=== PATIENT | female | born 1955 | race Caucasian/White ===

== ENCOUNTER 2016-12-08 10:13 | Emergency (ER) | payer BC, OTHER ==
[2016-12-08] MEDS ORDERED: Morphine INJ* 4 MG/ML 1 ML CARPUJECT IV ONE (10:29)
--- NOTE | 2016-12-08 10:50 | ED ---
Upper Extremity Pain - HPI Summary HPI Summary: Foosh injury right hand 30 minutes RN ORTHOPAEDIC - History of Current Complaint Chief Complaint: EDExtremityUpper Stated Complaint: FALL/RT WRIST PAIN Time Seen by Provider: 12/08/16 10:40 Hx Obtained From: Patient Mechanism Of Injury: Fall From A Standing Position Onset/Duration: Started Minutes Ago - 30, Traumatic Timing: Constant Severity Initially: Moderate Severity Currently: Moderate Pain Location: Wrist - right Character: Aching, Throbbing Aggravating Factor(s): Movement Alleviating Factor(s): Nothing Associated Signs & Symptoms: Positive: Swelling Related History: Dominant Hand Right - Allergies/Home Medications Allergies/Adverse Reactions: Allergies Allergy/AdvReac Type Severity Reaction Status Date / Time No Known Allergies Allergy Verified 12/08/16 10:21 PMH/Surg Hx/FS Hx/Imm Hx Previously Healthy: Yes - Cancer History Hx Chemotherapy: No Hx Radiation Therapy: No Infectious Disease History: No Infectious Disease History: Denies: Traveled Outside the [place] in Last 30 Days - Family History Known Family History: Positive: None - Social History 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 Lives: With Family Alcohol Use: Occasionally Hx Substance Use: No Substance Use Type: Reports: None Hx Tobacco Use: No Review of Systems Constitutional: Negative Eyes: Negative ENT: Negative Cardiovascular: Negative Respiratory: Negative Gastrointestinal: Negative Genitourinary: Negative Positive: Arthralgia - right fore arm, Decreased ROM - right wrist Skin: Negative Neurological: Negative Psychological: Normal All Other Systems Reviewed And Are Negative: Yes Physical Exam Triage Information Reviewed: Yes Vital Signs On Initial Exam: Initial Vitals Temp Pulse Resp BP Pulse Ox 97.5 F 88 19 120/86 99 12/08/16 10:20 12/08/16 10:20 12/08/16 10:20 12/08/16 10:20 12/08/16 10:20 Vital Signs Reviewed: Yes Appearance: Positive: Well-Appearing, Well-Nourished, Pain Distress Skin: Positive: Warm, Skin Color Reflects Adequate Perfusion, Dry Head/Face: Positive: Normal Head/Face Inspection Eyes: Positive: Normal, EOMI, Conjunctiva Clear ENT: Positive: Normal ENT inspection, Hearing grossly normal. Negative: Trismus , Muffled/hoarse voice Neck: Positive: Supple Respiratory/Lung Sounds: Positive: Clear to Auscultation, Breath Sounds Present Cardiovascular: Positive: Normal, RRR, Pulses are Symmetrical in both Upper and Lower Extremities Musculoskeletal: Positive: Normal - left, Limited @ - right wrist Neurological: Positive: Normal, Sensory/Motor Intact, Alert, Oriented to Person Place, Time, CN Intact II-III Psychiatric: Positive: Normal AVPU Assessment: Alert - Martha Coma Scale Best Eye Response: 4 - Spontaneous Best Motor Response: 6 - Obeys Commands Best Verbal Response: 5 - Oriented Diagnostics - Vital Signs Vital Signs Temp Pulse Resp BP Pulse Ox 12/08/16 10:20 97.5 F 88 19 120/86 99 - Laboratory Lab Statement: Any lab studies that have been ordered have been reviewed, and results considered in the medical decision making process. - Radiology No standard instances Xray Interpretation: Positive (See Comments) - ulnar styloid fracture, Comminuted radius fracture with 40 degree volar angulation Radiology Interpretation Completed By: Radiologist Re-Evaluation - Re-Evaluation First Eval Change: Improved - rings and bracelets off, pain med with some relief resting on pillow with ice applied, Dr. Fox to come to ED for reduction and splint Second Eval Change: Improved - Dr. Ford in to see patient, wrist reduced post reduction films reviewed, plan to d/c Course/Dx - Course Assessment/Plan: nsaids, hydrocodone, sling, rice follow with Dr. Almaguer in 4 days as planned - Diagnoses Provider Diagnoses: Wrist fracture, right Discharge - Discharge Plan Condition: Stable Disposition: HOME Prescriptions: Hydrocodone-Acetaminophen [Hydrocodone/Acetaminophen 5-325 mg] 1 tab PO Q4H PRN #30 tab MDD 4 PRN Reason: more sever pain Ibuprofen TAB* [Motrin TAB* 600 MG] 600 mg PO Q6H PRN #40 tab PRN Reason: pain Patient Education Materials: Wrist Fracture in Adults (ED), RICE Therapy (ED) Referrals: Austin Almaguer MD [Medical Doctor] - 4 Days
--- NOTE | 2016-12-08 10:59 | RAD ---
HISTORY: Wrist deformity, trauma COMPARISONS: None VIEWS: 6, Frontal, lateral, and oblique views of the right wrist and right forearm FINDINGS: BONE DENSITY: There is diffuse osteopenia. BONES: There is a transverse, comminuted and mildly displaced fracture of the distal radial metaphysis with approximately 40 degrees of volar angulation. There is nonspecific fracture of the styloid process of the ulna. JOINTS: There is no arthropathy. ALIGNMENT: There is no dislocation. SOFT TISSUES: Unremarkable. OTHER FINDINGS: None. IMPRESSION: 1. ANGULATED, COMMINUTED AND MILDLY DISPLACED FRACTURE OF THE DISTAL RADIAL METAPHYSIS. 2. NONSPECIFIC FRACTURE OF THE STYLOID PROCESS OF THE ULNA.
[2016-12-08] MEDS ORDERED: NS 0.9% 250 ML* 250 ML IV ONE (11:24)
[2016-12-08] MEDS ORDERED: Morphine INJ* 2 MG/ML 1 ML CARPUJECT IV ONE ×2 (11:25→13:00)
[2016-12-08] MEDS ORDERED: Morphine INJ* 4 MG/ML 1 ML CARPUJECT ONE (13:09)
[2016-12-08] MEDS ORDERED: Lidocaine 1% INJ* 10 MG/ML 30 ML SDV INJ ONE (13:18)
--- NOTE | 2016-12-08 14:22 | RAD ---
Indication: Right wrist injury 3 views of the wrist demonstrates fracture of the distal radius with overriding of the fracture fragments. Plaster cast is noted. IMPRESSION: Fracture distal radius with reduction of previously identified angulation of the distal fracture fragment.
[2016-12-08 14:50] VITALS: BP 119/74
--- NOTE | 2016-12-08 22:30 | CONS ---
ORTHOPEDIC SURGERY CONSULTATION: DATE OF CONSULT: 12/08/16 CONSULTING SERVICE: Orthopedics. REQUESTING SERVICE: Emergency Room. REASON FOR CONSULTATION: Right wrist injury. CHIEF COMPLAINT: Right wrist pain. HISTORY OF PRESENT ILLNESS: Ms. 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 She is right hand dominant. Earlier today, she tripped and fell on to her right hand and while trying to catch herself, put her right arm out in the front of her. She immediately had pain and deformity on the right wrist when she landed. She denies any head strike, LOC, or any other injuries. She has pain nowhere other than the right wrist. She has never broken a bone before and has had no problems with this wrist in the past. Upon evaluation, she does endorse some tingling in her fingers. PAST MEDICAL HISTORY: Denies. PAST SURGICAL HISTORY: Denies. ALLERGIES: No known drug allergies. 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 She does not smoke. REVIEW OF SYSTEMS: Negative for fever, recent visual changes, difficulty swallowing, chest pain, shortness of breath, abdominal pain, hematuria, easy bruising, diffuse weakness, lack of coordination, or diffuse rash. PHYSICAL EXAM: Constitutional: She is healthy and nonseptic, and in no acute distress. Cardiovascular: Pulse examination demonstrates positive radial pulses bilaterally with brisk capillary refill. There are no varicosities. Lymphatic: No lymphadenopathy. Skin: Bilateral upper and lower extremities examination reveals skin is intact. Notably, skin is intact at the fracture site. Psychiatric/Neurological: Appropriate affect. Alert and oriented to person, place, and time. There is no significant abnormality in coordination appreciated. Normoreflexive deep tendon reflexes in the affected extremity. Musculoskeletal: Bilateral lower extremities and the contralateral upper extremity show full range of motion with no evidence of instability. Tenderness to palpation and they do have 5/5 strength. There is no gross deformity. In the right upper extremity, the skin is intact throughout. She has full pain with range of motion in her shoulder and elbow. No tenderness to palpation along her humerus or in the forearm. At the distal radius, there is an obvious deformity with tenderness to palpation here as well. Skin is intact. There is some swelling, but no ecchymosis. She has good motor function with EPL, OP and the first dorsal interosseous muscles. She does have some mildly decreased sensation in the median nerve distribution. It is intact in the ulnar and radial nerve distribution. She has a palpable radial pulse and all of her fingers are warm and well perfused. DIAGNOSTIC STUDIES: Imaging: X-rays were ordered, obtained and independently interpreted and do show a distal radius fracture with displacement and volar angulation. IMPRESSION AND PLAN: Right closed distal radius fracture with displacement. The nature of the diagnosis was reviewed at length with the patient and my recommendation for a closed reduction. We did discuss at length the risks and benefits of the closed reduction. After this discussion, she elected to move forward with a closed reduction. PROCEDURE NOTE: Verbal consent was obtained after a hematoma block and closed reduction of her right distal radius fracture. 10 cc of 1% plain lidocaine was placed into the fracture site. She tolerated this well without any complications. It did improve her pain significantly. Therefore, we moved forward with the closed reduction, axial traction was pulled and reduction maneuver performed. She tolerated this very well. A dorsal volar plaster splint was applied with adequate padding and she tolerated this procedure well. Afterwards, her motor function remained intact as before in the procedure and her sensation in the median nerve distribution returned to normal. Postreduction x-rays showed interval improvement in the alignment of the fracture. PLAN: Given the volar shear nature as well as the displacement, this is likely a fracture that will warrant surgical intervention. I explained this to her and we discussed this at length. I have asked her to follow up with my colleague, Dr. Almaguer, to further discuss surgery and she will plan on seeing him early next week in the office to do this. We did discuss that should she have any increase in pain, swelling or return of any numbness in her fingers, she is to return to the emergency room immediately. All of her questions were answered and she will follow up with Dr. Almaguer. [id number]/[facility] #: [id number] [facility] H[facility]PITALN[facility]
== END 2016-12-08 14:49 | disposition home or self-care (01) ==
LOC: ED 10:13
DX: S62.101A Fracture of unspecified carpal bone, right wrist, initial encounter for closed fracture (principal); W19.XXXA Unspecified fall, initial encounter; Y93.9 Activity, unspecified
CPT/HCPCS: 96374; 96376; 99282; J2001; J2270

== ENCOUNTER 2016-12-15 13:19 | Day surgery (SDC) | payer OTHER ==
[~2016-12-15 13:19] MED LIST: Buffered Lidocaine 0.9% SYRIN* 5 ML/SYR SYRINGE INTRADERM ONE; Dexamethasone IV* 4 MG/ML 1 ML (4 MG) IV SLOW PU ONE; Famotidine IV* 10 MG/ML 2 ML (20 mg) IV ONE
[2016-12-15] MEDS ORDERED: Famotidine IV* 10 MG/ML 2 ML (20 mg) ONE (13:48)
[2016-12-15] MEDS ORDERED: Dexamethasone IV* 4 MG/ML 1 ML (4 MG) ONE (13:48)
[2016-12-15] MEDS ORDERED: Bupivacaine 0.25% SDV* 30 ML ONE (14:46)
[2016-12-15] MEDS ORDERED: Lidocaine 2% PF * 5 ML VIAL ONE (14:48)
[2016-12-15] MEDS ORDERED: Propofol* 10 MG/ML 20 ML BTL IV PUSH ONE (14:48)
[2016-12-15] MEDS ORDERED: fentaNYL* 50 MCG/ML 2 ML VIAL (100 MCG VIAL) ONE (14:48)
[2016-12-15] MEDS ORDERED: Midazolam* 1 MG/ML 2 ML VIAL (2 MG) ONE (14:48)
[2016-12-15] MEDS ORDERED: ROPIVACAINE 5 MG/ML 30 ML BTL (0.5%) ONE (15:12)
[2016-12-15] MEDS ORDERED: ceFAZolin 2 GM PREMIX (*) 2 GM/50 ML BAG IVPB ONE (15:14)
[2016-12-15] MEDS ORDERED: PROCHLORPERAZINE INJ 5 MG/ML 2 ML VIAL IV PRN (16:18)
[2016-12-15] MEDS ORDERED: fentaNYL* 50 MCG/ML 2 ML VIAL (100 MCG VIAL) IV PRN (16:18)
[2016-12-15] MEDS ORDERED: oxyCODONE/Acetamin 5/325 MG* TAB PO PRN (16:18)
[2016-12-15] MEDS ORDERED: DiMENhydriNATE IV* 50 MG/ML VIAL IV PUSH PRN (16:18)
[2016-12-15] MEDS ORDERED: Ondansetron INJ* 2 MG/ML VIAL ONE (16:19)
[2016-12-15 17:48] VITALS: BP 119/70
--- NOTE | 2016-12-16 11:47 | OP ---
OPERATIVE REPORT: DATE OF OPERATION: 12/15/16 - [place] DATE OF : 57 SURGEON: Austin Almaguer MD FEATHERER: GARTH Rollins An miner assistant was needed for the entirety of the procedure to aid in positioning of the arm and retraction. ANESTHESIOLOGIST: Mandeep De Leon MD ANESTHESIA: Supraclavicular block with general. PRE-OP DIAGNOSIS: Right intraarticular, greater than 3-fragment distal radius fracture. POST-OP DIAGNOSIS: Right intraarticular, greater than 3-fragment distal radius fracture. OPERATIVE PROCEDURE: Open reduction internal fixation, right intraarticular, greater than 3-fragment distal radius fracture. INDICATIONS: Marleny had the aforementioned fracture, it was very displaced, attempted at closed reduce in the ER but it was fracture and so we talked about risks and benefits, and she wanted to proceed with surgery. ESTIMATED BLOOD LOSS: 5 mL. COMPLICATIONS: None. FINDINGS: As expected. DESCRIPTION OF PROCEDURE: Marleny was seen in the preoperative holding area. The correct side, site, and procedure were identified. We came back to the operating room. The arm was prepped and draped in the usual fashion after the block was performed. Formal time-out was performed. I began by exsanguinating the arm with the Esmarch and the tourniquet was inflated to 250 mmHg. Dissection was carried down through the subcutaneous tissue to the FCR sheath. This was opened and the tendon was retracted ulnarly. The subsheath was opened. The plane between the FPL and the pronator was developed. The pronator was radial aspect and T'd back distally leaving the distal 2 to 3 mm of volar extrinsic capsular ligaments attached. Brachioradialis was released off its insertion. The Arthrex hand traction device was placed and 10 pounds of traction was hung. The fracture was reduced. The plate was brought in and pinned in place with 2 pins distal and 1 pin proximal. Mini C-arm fluoroscopy confirmed the reduction. I then placed all my distal row screws with the 3 most ulnar screws using the nominal angle and the radial styloid screw being a variable angle locking screw. They were all locking screws. I placed a second variable angle locking screw into the styloid. I removed the pin proximally and brought the plate down to the bone. The final reduction was checked and I then placed three 2.4-mm cortical screws proximally. The final fluoroscopic imaging was then taken. The pronator was repaired with 3-0 Vicryl suture. The subcutaneous tissue was reapproximated with 3-0 Vicryl suture. The skin was closed with 3-0 Monocryl and Steri- Strips. Little bit of Marcaine was infiltrated into the operative area. The wound was dressed with 4x4's, sterile Webril, and a cock-up wrist splint was applied. Tourniquet was deflated. The hand pinked up immediately. She was taken to the recovery room in stable condition. [id number]/[facility] #: [id number] MTDD
--- NOTE | 2016-12-16 17:50 | RAD ---
CPT II Codes: 6045F INDICATION: Right wrist fracture Fluoroscopic services provided for referring physician. 46 seconds of fluoroscopy time was used. 9 spot images demonstrates internal fixation with a plate and screw. IMPRESSION: Internal fixation distal radius fracture under fluoroscopic guidance.
== END 2016-12-15 18:06 | disposition home or self-care (01) ==
LOC: OREAST 13:19
PROVIDERS: ATTEND Orthopaedic Surgery Hand Surgery
DX: S52.571A Other intraarticular fracture of lower end of right radius, initial encounter for closed fracture (principal); W18.30XA Fall on same level, unspecified, initial encounter; Y92.480 Sidewalk as the place of occurrence of the external cause
CPT/HCPCS: 76000; C1713; C1776; J0690; J1100; J2250; J2405; J2704; J2795; J3010